=== PATIENT | female | born 1975 | race Caucasian/White ===

== ENCOUNTER → 2024-03-25 | Outpatient (CLI) | payer OTHER ==
[~2024-03-25] MED LIST: PROHANCE 279.3MG/ML 5ML VIAL As Ordered ONE
== END ==
LOC: M RAD 15:19
PROVIDERS: ATTEND Family Medicine
DX: K80.81 Other cholelithiasis with obstruction (principal); R93.5 Abnormal findings on diagnostic imaging of other abdominal regions, including retroperitoneum
CPT/HCPCS: 74183; A9576

== ENCOUNTER → 2024-04-29 | Outpatient (CLI) | payer OTHER | LOC: EDUNIT# 04-01 16:00 → M RAD 12:04 | PROVIDERS: ATTEND Family Medicine | DX: N94.9 Unspecified condition associated with female genital organs and menstrual cycle (principal) ==

== ENCOUNTER → 2024-07-15 | Outpatient (CLI) | payer OTHER | LOC: M RAD 09:18 | PROVIDERS: ATTEND Internal Medicine Endocrinology, Diabetes & Metabolism | DX: E22.0 Acromegaly and pituitary gigantism (principal); E04.1 Nontoxic single thyroid nodule ==

== ENCOUNTER → 2025-02-13 | Outpatient (REF) | payer OTHER ==
[2025-02-13 19:21] LABS: IRON (FE) 69.0 UG/DL (50-170); PERCENT SATURATION 24.3 % (13.2-45.0)
== END ==
LOC: M LAB REF 17:17
PROVIDERS: ATTEND Internal Medicine
DX: D64.9 Anemia, unspecified (principal)

== ENCOUNTER → 2025-04-19 | Outpatient (CLI) | payer OTHER | LOC: M RAD 08:35 | PROVIDERS: ATTEND Internal Medicine Endocrinology, Diabetes & Metabolism | DX: E22.0 Acromegaly and pituitary gigantism (principal); D35.2 Benign neoplasm of pituitary gland | CPT/HCPCS: 70553; A9576 ==

== ENCOUNTER → 2025-04-27 | Outpatient (CLI) | payer OTHER ==
[2025-04-27 17:59] LABS: ALT/SGPT 18.0 U/L (7.0-40); AST/SGOT 18.0 U/L (<34)
== END ==
LOC: M LAB 16:52
PROVIDERS: ATTEND Internal Medicine Endocrinology, Diabetes & Metabolism
DX: E22.0 Acromegaly and pituitary gigantism (principal)